=== PATIENT | female | born 1980 | race American Indian/Alaskan Native ===

== ENCOUNTER 2017-10-28 11:43 | Emergency (ER) | payer OTHER ==
[2017-10-28 12:19] VITALS: BP 130/76
[2017-10-28 13:10] LABS: Bacteria,Urine 1+ /HPF (Negative); Bilirubin,Urine NEG (Negative); Blood,Urine NEG (Negative); Color,Urine Yellow (Yellow); Mucus,Urine FEW /HPF; Protein,Urine <15 mg/dL mg/dL (Negative); Urobilinogen,Urine < 2.0 mg/dL (<2.0)
[2017-10-28 14:32] LABS: HCG Qualitative,Urine Negative (Negative)
[2017-10-28] MEDS ORDERED: NACL 0.9% 1000 ML 1,000 ML IV ONE (14:45)
[2017-10-28] MEDS ORDERED: LIDOCAINE VISCOUS 2% PO ONE (14:45)
[2017-10-28] MEDS ORDERED: ZOFRAN IV ONE (14:45)
[2017-10-28] MEDS ORDERED: PEPCID IV ONE (14:45)
[2017-10-28] MEDS ORDERED: ALUM-MAG HYDROX-SIMETH 200-200-20MG/5ML PO ONE (14:45)
--- NOTE | 2017-10-28 14:49 | Emergency Department Report ---
Blank Doc - Documentation Documentation: 37-year-old female with no past medical history and surgical history significant for delivery 4% the hospital complaints of abdominal pain , nausea, and abdominal distention for the past 5 days. Patient has upper abdominal pain, and pressure radiating across the entire upper abdomen. One episode of vomiting 4 days ago but continued nausea. Patient has a history of chronic loose stools with last bowel movement this p.m. Denies fever, melena, hematochezia, hematemesis, or dysuria. UA and urine review (neg upt) Patient does appear to have upper abdominal distention with tenderness at the right upper quadrant, epigastric area, and left upper quadrant No rebound or guarding noted CBC, CMP, lipase ordered. IV, normal saline, Zofran, Pepcid, viscous lidocaine and Maalox CT and her pelvis IV contrast mid evel to follow
[2017-10-28 15:26] LABS: Basophils # (Auto) 0.1 K/mm3 (0.0-0.1); Basophils % (Auto) 0.8 % (0.0-1.8); Eosinophils # (Auto) 0.2 K/mm3 (0.0-0.4); Eosinophils % (Auto) 2.1 % (0.0-4.3); Hematocrit 24.1 % (30.3-42.9); Hemoglobin 7.7 gm/dl (10.1-14.3); Lymphocytes # (Auto) 1.3 K/mm3 (1.2-5.4); Lymphocytes % (Auto) 14.5 % (13.4-35.0); Mean Corpuscular HGB Conc 32 % (30-34); Monocytes # (Auto) 0.5 K/mm3 (0.0-0.8); Monocytes % (Auto) 5.9 % (0.0-7.3); Platelet Count 358 K/mm3 (140-440); Red Blood Count 4.08 M/mm3 (3.65-5.03)
[2017-10-28 15:28] LABS: Mean Corpuscular Hemoglobin 19 pg (28-32); Mean Corpuscular Volume 59 fl (79-97)
[2017-10-28 15:29] LABS: Red Cell Distribution Width 20.5 % (13.2-15.2)
[2017-10-28 15:35] LABS: Alanine Aminotransferase 10 units/L (7-56); Albumin 3.9 g/dL (3.9-5); BUN/Creatinine Ratio 20; Blood Urea Nitrogen 12 mg/dL (7-17); Calcium 8.6 mg/dL (8.4-10.2); Hemolysis Index 29; Lipase 24 units/L (13-60)
--- NOTE | 2017-10-28 17:51 | Cat Scan Report ---
FINAL REPORT EXAM: CT ABDOMEN PELVIS W CON HISTORY: epigastric, upper abd pain, bloated n,v TECHNIQUE: CT of the abdomen and pelvis was performed after the administration of intravenous contrast. Subsequently, CT of the abdomen and pelvis was performed in the delayed phase. Reconstructions were included in the coronal and sagittal planes. PRIORS: None. FINDINGS: Lower thorax: There is a 4 millimeter right middle lobe pulmonary nodule on series 2, image 22. A small triangular opacity is seen adjacent to the left major fissure likely representing an intrapulmonary lymph node. A 2 millimeter left lower lobe pulmonary nodule seen on series 2, image 6. the visualized portions of the heart are normal. Liver: The liver is normal in attenuation. No intrahepatic biliary duct dilation. Tiny low-attenuation lesion is seen near the hepatic dome which is too small to characterize but likely represents a simple cyst. Gallbladder/ biliary system: The gallbladder is collapsed and not well evaluated. The common bile duct appears nondilated. Spleen: No splenic lesions are seen. Pancreas: No pancreatic lesions are seen. No pancreatic duct dilation. Kidneys: There are numerous simple left renal cysts. Some of the cysts demonstrate fill-in of contrast on the delayed phase. There is a single simple right renal cyst. One of the lesions in the inferior pole of the left kidney is higher in attenuation than a simple cyst. This lesion is seen on series 2, image 99 measuring 1.9 x 1.2 centimeters. There is a 1.3 centimeter nonspecific low-attenuation lesion in the interpolar region of the right kidney. No hydronephrosis is seen on either side. Adrenal glands: No adrenal masses. Vasculature: The abdominal and pelvic vasculature is patent without variant anatomy. Lymph nodes: No enlarged lymph nodes are seen in the abdomen or pelvis. Bowel, mesentery, peritoneum: No bowel obstruction. There is a trace amount of perihepatic ascites. The appendix is normal. No colonic diverticulosis. No bowel wall thickening. No free air. Urinary bladder: No filling defects are seen. Pelvis: Probable degenerating corpus luteal cyst is seen in the right ovary. The uterus and left ovary appear unremarkable. There is a small volume of free fluid in the pelvis. Abdominal wall: There is a small fat containing umbilical hernia. Bones: There is sclerosis surrounding the right greater than left sacroiliac joints. The sacroiliac joints remain patent. IMPRESSION: 1. Bilateral nonspecific low-attenuation renal lesions which are higher in attenuation than simple cysts. Recommend further evaluation with dedicated renal CT or MRI. 2. Several additional simple bilateral renal cysts. 3. Several left renal caliceal diverticula. 4. Small amount of free fluid in the abdomen and pelvis. 5. Probable small simple hepatic cyst near the hepatic dome. 6. Bilateral lower lobe pulmonary nodules. Recommend further evaluation with chest CT to exclude other pulmonary nodules. 7. Bilateral sacroiliitis.
--- NOTE | 2017-10-28 18:07 | Emergency Department Report ---
Vomiting/Diarrhea - HPI Chief Complaint: Abdominal Pain Stated Complaint: ABD PAIN Time Seen by Provider: 10/28/17 14:23 Duration: 5 Days Severity: moderate Nausea/Vomiting Severity: Moderate Diarrhea Severity: Mild Pain Location: Epigastric Pain Severity: Moderate Symptoms: Yes Watery Diarrhea, Yes Able to Tolerate Fluids, No Bloody diarrhea, No Fever, No Recent Unusual Foods, No Recent Untreated Water, No Recent use of Antibiotics, No Family w/ Similar Symptoms, No Contacts w/ Similar Symptoms, No Rash, No Hematuria, No Recent URI Symptoms Other History: This is a 37-year-old female who presents with abdominal pain with nausea and vomiting for 5 days. Patient states symptoms started with nausea and vomiting and lightheadedness 1 on Tuesday. Patient states she started taking Pepto-Bismol and Tylenol with some improvement of symptoms. Patient states today abdominal pain increased to sharp pains 8 out of 10 on pain scale and radiating across her entire upper abdomen. Patient also states her stomach appears to be larger than normal presentation today. Patient has a history of chronic loose stools with last bowel movement this p.m. Denies fever , chest pain, melena, hematochezia, hematemesis, dysuria, frequency, and or urgency. ED Review of Systems ROS: Stated complaint: ABD PAIN Other details as noted in HPI Constitutional: denies: chills, fever Respiratory: denies: cough, shortness of breath, wheezing Cardiovascular: denies: chest pain, palpitations Gastrointestinal: abdominal pain, nausea, vomiting, diarrhea. denies: constipation, hematemesis, melena, hematochezia Genitourinary: denies: urgency, dysuria, frequency, hematuria, discharge Neurological: denies: headache, weakness, paresthesias Psychiatric: denies: anxiety, depression ED Past Medical Hx - Past Medical History Previous Medical History?: No - Surgical History Past Surgical History?: Yes Additional Surgical History: c section - Social History Smoking Status: Never Smoker Substance Use Type: None - Medications Home Medications: Home Medications Medication Instructions Recorded Confirmed Last Taken Type Iron/Folat1/C/B12/Biot/Docusat 1 each PO DAILY #14 capsule 10/28/17 Unknown Rx [Feriva FA Capsule] Vomiting Diarrhea Exam - Exam General: Vital signs noted. No distress. Alert and acting appropriately. HEENT: Yes Moist Mucous Membranes, No Pharyngeal Erythema, No Pharyngeal Exudates, No Rhinorrhea, No Conjuctival Injection, No Frontal Tenderness, No Maxillary Tenderness Neck: No Adenopathy, No Rigidity Lungs: Yes Clear Lung Sounds, Yes Good Air Exchange, No Wheezes, No Stridor, No Cough, No Nasal Flaring, No Retractions, No Use of Accessory Muscles Heart exam: Regular: Yes, Murmur: No, Tachycardia: No Abdomen: Tenderness: Yes (RUQ & LUQ), Peritoneal Signs: No, Distention: Yes, Hyperactive Bowel sounds: No Skin exam: Rash: No, Edema: No, Normal turgor: Yes Neurologic: Alert and oriented, no deficits. Musculoskeletal: Unremarkable. ED Course Vital Signs 10/28/17 12:15 Temperature 98.5 F Pulse Rate 82 Respiratory 16 Rate Blood Pressure 130/76 O2 Sat by Pulse 96 Oximetry ED Medical Decision Making - Lab Data Result diagrams: 10/28/17 15:01 10/28/17 15:01 - Radiology Data Radiology results: report reviewed, image reviewed EXAM: CT ABDOMEN PELVIS W CON HISTORY: epigastric, upper abd pain, bloated n,v TECHNIQUE: CT of the abdomen and pelvis was performed after the administration of intravenous contrast. Subsequently, CT of the abdomen and pelvis was performed in the delayed phase. Reconstructions were included in the coronal and sagittal planes. PRIORS: None. FINDINGS: Lower thorax: There is a 4 millimeter right middle lobe pulmonary nodule on series 2, image 22. A small triangular opacity is seen adjacent to the left major fissure likely representing an intrapulmonary lymph node. A 2 millimeter left lower lobe pulmonary nodule seen on series 2, image 6. the visualized portions of the heart are normal. Liver: The liver is normal in attenuation. No intrahepatic biliary duct dilation. Tiny low-attenuation lesion is seen near the hepatic dome which is too small to characterize but likely represents a simple cyst. Gallbladder/ biliary system: The gallbladder is collapsed and not well evaluated. The common bile duct appears nondilated. Spleen: No splenic lesions are seen. Pancreas: No pancreatic lesions are seen. No pancreatic duct dilation. Kidneys: There are numerous simple left renal cysts. Some of the cysts demonstrate fill-in of contrast on the delayed phase. There is a single simple right renal cyst. One of the lesions in the inferior pole of the left kidney is higher in attenuation than a simple cyst. This lesion is seen on series 2, image 99 measuring 1.9 x 1.2 centimeters. There is a 1.3 centimeter nonspecific low-attenuation lesion in the interpolar region of the right kidney. No hydronephrosis is seen on either side. Adrenal glands: No adrenal masses. Vasculature: The abdominal and pelvic vasculature is patent without variant anatomy. Lymph nodes: No enlarged lymph nodes are seen in the abdomen or pelvis. Bowel, mesentery, peritoneum: No bowel obstruction. There is a trace amount of perihepatic ascites. The appendix is normal. No colonic diverticulosis. No bowel wall thickening. No free air. Urinary bladder: No filling defects are seen. Pelvis: Probable degenerating corpus luteal cyst is seen in the right ovary. The uterus and left ovary appear unremarkable. There is a small volume of free fluid in the pelvis. Abdominal wall: There is a small fat containing umbilical hernia. Bones: There is sclerosis surrounding the right greater than left sacroiliac joints. The sacroiliac joints remain patent. IMPRESSION: 1. Bilateral nonspecific low-attenuation renal lesions which are higher in attenuation than simple cysts. Recommend further evaluation with dedicated renal CT or MRI. 2. Several additional simple bilateral renal cysts. 3. Several left renal caliceal diverticula. 4. Small amount of free fluid in the abdomen and pelvis. 5. Probable small simple hepatic cyst near the hepatic dome. 6. Bilateral lower lobe pulmonary nodules. Recommend further evaluation with chest CT to exclude other pulmonary nodules. 7. Bilateral sacroiliitis. - Medical Decision Making This is a 37 y.o. female that presents with nausea vomiting and epigastric abdominal pain for 5 days. Patient is stable and was examined by ca and Dr. Yanes. Vitals are normal. Obtained labs. Patient has anemia, all of the labs are unremarkable. CT of abdomen and pelvis obtained and dictated by radiologist. 1. Bilateral nonspecific low-attenuation renal lesions which are higher in attenuation than simple cysts. Recommend further evaluation with dedicated renal CT or MRI. 2. Several additional simple bilateral renal cysts. 3. Several left renal caliceal diverticula. 4. Small amount of free fluid in the abdomen and pelvis. 5. Probable small simple hepatic cyst near the hepatic dome. 6. Bilateral lower lobe pulmonary nodules. Recommend further evaluation with chest CT to exclude other pulmonary nodules. 7. Bilateral sacroiliitis. Discussed CT results with patient, patient is aware of lesions insisting currently follow with urology. Discussed plan with patient to start iron supplements but will need to follow up with primary care provider for refills. Patient will be referred to pulmonology for further evaluation of pulmonary nodules. No further questions noted by the patient. Discharged home in stable condition. Follow up with PCP in 2-3 days. Critical care attestation.: If time is entered above; I have spent that time in minutes in the direct care of this critically ill patient, excluding procedure time. ED Disposition Clinical Impression: Renal lesion, Bilateral renal cysts, Pulmonary nodules, Nausea and vomiting in adult Anemia Qualifiers: Anemia type: unspecified type Qualified Code(s): D64.9 - Anemia, unspecified Disposition: TO HOME OR SELFCARE Is pt being admited?: No Does the pt Need Aspirin: No Condition: Stable Instructions: Abdominal Pain (ED), Acute Nausea and Vomiting (ED) Additional Instructions: Wash hands frequently. Increase fluid intake. Drinks high in sugars such as carbonated soft drinks, fruit juice, and highly sugared liquids should be avoided. Follow-up with urology for further workup and management of renal lesions cyst. Follow-up with pulmonology for further evaluation of pulmonary nodules. Take iron for anemia daily with stool softeners to avoid constipation. Prescriptions: Iron/Folat1/C/B12/Biot/Docusat [Feriva FA Capsule] 1 each PO DAILY #14 capsule Referrals: [facility] SHELTON [Provider Group] - 3-5 Days WILY NGUYEN MD [Staff Physician] - 3-5 Days JOSUE FORRESTER MD [Staff Physician] - 3-5 Days Forms: Work/School Release Form(ED) Time of Disposition: 18:28 Print Language: BULGARIAN
== END 2017-10-28 18:46 | disposition home or self-care (01) ==
LOC: ED 11:43
DX: N28.1 Cyst of kidney, acquired (principal); N28.9 Disorder of kidney and ureter, unspecified; R91.1 Solitary pulmonary nodule; D64.9 Anemia, unspecified
CPT/HCPCS: 36415; 74177; 80053; 81001; 81025; 82271; 83690; 85025; 96361; 96374; 96375; 99284; J2405; J7030; Q9967

== ENCOUNTER 2019-02-14 05:35 | Observation (INO) | payer OTHER ==
[2019-02-14] MEDS ORDERED: ACETAMINOPHEN 500 MG TAB ONE (05:58)
[2019-02-14] MEDS ORDERED: ACETAMINOPHEN 500 MG TAB PO ONE (06:06)
--- NOTE | 2019-02-14 06:10 | XRay Report ---
CHEST 1 VIEW, 02/14/2019 5:49 AM CLINICAL INFORMATION/INDICATION: Chest pain COMPARISON: None FINDINGS: SUPPORT DEVICES: None. HEART: The cardiac silhouette is normal in size. LUNGS/PLEURA: The lungs are clear of focal airspace disease or significant pleural effusion. ADDITIONAL FINDINGS: No additional acute findings. IMPRESSION: 1. No evidence of acute cardiopulmonary process. Signer Name: Macy Nugent MD Signed: 02/14/2019 6:06 AM Workstation Name: [id number]
[2019-02-14 06:25] LABS: Hematocrit 24.3 % (30.3-42.9); Hemoglobin 7.2 gm/dl (10.1-14.3); Mean Corpuscular HGB Conc 30 % (30-34); Platelet Count 314 K/mm3 (140-440); Red Blood Count 4.13 M/mm3 (3.65-5.03)
[2019-02-14 06:35] LABS: Mean Corpuscular Volume 59 fl (79-97); Red Cell Distribution Width 20.8 % (13.2-15.2)
[2019-02-14] MEDS ORDERED: KETOROLAC 30 MG/1 ML INJ IV ONE (06:40)
[2019-02-14] MEDS ORDERED: SODIUM CHLORIDE 0.9% 1000 ML 1,000 ML IV ONE ×2 (06:40→06:41)
[2019-02-14 06:45] LABS: BUN/Creatinine Ratio 16; Blood Urea Nitrogen 11 mg/dL (7-17); Calcium 8.4 mg/dL (8.4-10.2); Hemolysis Index 0
[2019-02-14 07:03] LABS: Bilirubin,Urine NEG (Negative); Blood,Urine NEG (Negative); Color,Urine Straw (Yellow); Protein,Urine <15 mg/dL mg/dL (Negative); Urobilinogen,Urine < 2.0 mg/dL (<2.0)
[2019-02-14 07:05] LABS: HCG Qualitative,Urine Negative (Negative)
[2019-02-14 07:13] LABS: Anisocytosis 1+; Band Neutrophils # (Manual) 0.2 K/mm3; Basophils % (Manual) 0 % (0.0-1.8); Eosinophils % (Manual) 0 % (0.0-4.3); Hypochromasia 3+; Monocytes % (Manual) 0 % (0.0-7.3); Total Cells Counted 100
[2019-02-14 07:14] LABS: Schistocytes 1+
[2019-02-14 07:15] LABS: Ovalocytes 1+; Stomatocytes Few; Target Cells 1+
[2019-02-14 07:16] LABS: Platelet Estimate Consistent w Auto
[2019-02-14 07:21] LABS: INR 1.05 (0.87-1.13)
[2019-02-14 07:22] LABS: Partial Thromboplastin Time 32.6 Sec. (24.2-36.6)
[2019-02-14 07:27] LABS: Alanine Aminotransferase 18 units/L (7-56); Albumin 3.4 g/dL (3.9-5)
[2019-02-14 07:28] LABS: Bilirubin,Direct < 0.2 mg/dL (0-0.2)
--- NOTE | 2019-02-14 07:56 | Emergency Department Report ---
ED General Adult HPI - General Chief complaint: Chest Pain Stated complaint: CP Time Seen by Provider: 02/14/19 06:09 Source: patient Mode of arrival: Stretcher Limitations: No Limitations - History of Present Illness Initial comments: This is a 39-year-old female who does not take any chronic medications. Initially she states that she doesn't have any medical history. However on further questioning she has a history of a renal abscess and transfusion requirement after . She states that she has not received any other transfusion. She states that her periods have been on time and 5 days of duration and not chronically heavy. She came to the emergency room today as she woke up in the middle of night with chest pain that radiated to her mid thoracic area. She did have some mild shortness of breath which is not ongoing. The pain has resolved. It was not associated with cough. Patient stated that she went to the bathroom and vomited once and had a bowel movement which was apparently normal. She does not report any difficulty in urinating. She was not aware of fever and did not experience chills. -: Sudden (awoken last night) Location: chest Radiation: back Severity scale (0 -10): 8 Quality: aching Consistency: now resolved Improves with: none Worsens with: none Associated Symptoms: denies other symptoms (see HPI above) Treatments Prior to Arrival: none - Related Data Previous Rx's Medication Instructions Recorded Last Taken Type Iron/Folat1/C/B12/Biot/Docusat 1 each PO DAILY #14 capsule 10/28/17 Unknown Rx [Feriva FA Capsule] Allergies Allergy/AdvReac Type Severity Reaction Status Date / Time No Known Allergies Allergy Verified 02/14/19 05:45 ED Review of Systems ROS: Stated complaint: CP Other details as noted in HPI Constitutional: denies: chills, fever Eyes: denies: eye pain, eye discharge, vision change ENT: denies: ear pain, throat pain Respiratory: denies: cough, shortness of breath, wheezing Cardiovascular: chest pain. denies: palpitations Endocrine: no symptoms reported Gastrointestinal: nausea, vomiting. denies: abdominal pain, diarrhea Genitourinary: denies: urgency, dysuria, discharge Musculoskeletal: back pain. denies: joint swelling, arthralgia Skin: denies: rash, lesions Neurological: denies: headache, weakness, paresthesias Psychiatric: denies: anxiety, depression Hematological/Lymphatic: denies: easy bleeding, easy bruising ED Past Medical Hx - Past Medical History Previous Medical History?: No - Surgical History Past Surgical History?: Yes Additional Surgical History: c section - Social History Smoking Status: Never Smoker Substance Use Type: None - Medications Home Medications: Home Medications Medication Instructions Recorded Confirmed Last Taken Type Iron/Folat1/C/B12/Biot/Docusat 1 each PO DAILY #14 capsule 10/28/17 Unknown Rx [Feriva FA Capsule] ED Physical Exam - General Limitations: No Limitations General appearance: alert, in no apparent distress - Head Head exam: Present: atraumatic, normocephalic - Eye Eye exam: Present: normal appearance, conjunctival injection (and conjunctival pallor) - ENT ENT exam: Present: mucous membranes moist - Neck Neck exam: Present: normal inspection. Absent: tenderness, meningismus - Respiratory Respiratory exam: Present: normal lung sounds bilaterally. Absent: respiratory distress - Cardiovascular Cardiovascular Exam: Present: regular rate, normal rhythm. Absent: systolic murmur, diastolic murmur, rubs, gallop - GI/Abdominal GI/Abdominal exam: Present: soft, normal bowel sounds. Absent: distended, tenderness, guarding, rebound, rigid - Extremities Exam Extremities exam: Present: normal inspection, normal capillary refill. Absent: pedal edema, joint swelling, calf tenderness - Back Exam Back exam: Present: normal inspection. Absent: CVA tenderness (R), CVA tenderness (L), muscle spasm, paraspinal tenderness, vertebral tenderness - Neurological Exam Neurological exam: Present: alert, oriented X3, CN II-XII intact - Psychiatric Psychiatric exam: Present: normal affect, normal mood - Skin Skin exam: Present: warm, dry, intact, normal color. Absent: rash ED Course Vital Signs 02/14/19 02/14/19 02/14/19 05:40 05:42 05:45 Temperature 101.4 F H Pulse Rate 97 H Respiratory 18 Rate Blood Pressure 133/66 124/60 O2 Sat by Pulse 100 100 97 Oximetry 02/14/19 02/14/19 02/14/19 06:00 06:17 06:30 Temperature Pulse Rate 97 H 91 H 95 H Respiratory 22 14 19 Rate Blood Pressure 125/55 115/47 121/49 O2 Sat by Pulse 96 99 98 Oximetry 1102/14/19 02/14/19 06:45 07:00 07:15 Temperature 99.3 F Pulse Rate 96 H 93 H Respiratory 26 H 16 Rate Blood Pressure 121/63 118/59 O2 Sat by Pulse 96 97 Oximetry - Reevaluation(s) Reevaluation #1: The patient was given IV fluid and Tylenol. 1 g of ceftriaxone empirically. Lactic acid level was normal. So far no obvious source of infection. CT examinations are pending. One unit of blood ordered. Discussed with hospitalist. Patient is pending admission by Dr. Kruger. I will check CT results. 02/14/19 08:28 Reevaluation #2: CT studies are basically normal. 02/14/19 09:59 Reevaluation #3: There was a very late disclosure and/or discovery of the patient's [employer] insurance status. She is referred and seen and admitted to observation by the hospitalist. I spoke to Dr. Betts at [employer]. She authorized us to keep the patient here to complete her observation screening overnight. 02/14/19 11:40 ED Medical Decision Making - Lab Data Result diagrams: 02/14/19 05:48 02/14/19 05:48 Laboratory Results - last 24 hr 02/14/19 02/14/19 02/14/19 05:48 05:48 05:53 WBC 9.0 RBC 4.13 Hgb 7.2 L Hct 24.3 L MCV 59 L MCH 17 L MCHC 30 RDW 20.8 H Plt Count 314 Add Manual Diff Complete Total Counted 100 Seg Neutrophils % Fire Alarm Operator Seg Neuts % (Manual) 96.0 H Band Neutrophils % 2.0 Lymphocytes % (Manual) 2.0 L Reactive Lymphs % (Man) 0 Monocytes % (Manual) 0 Eosinophils % (Manual) 0 Basophils % (Manual) 0 Metamyelocytes % 0 Myelocytes % 0 Promyelocytes % 0 Blast Cells % 0 Nucleated RBC % Not Reportable Seg Neutrophils # Man 8.6 H Band Neutrophils # 0.2 Lymphocytes # (Manual) 0.2 L Abs React Lymphs (Man) 0.0 Monocytes # (Manual) 0.0 Eosinophils # (Manual) 0.0 Basophils # (Manual) 0.0 Metamyelocytes # 0.0 Myelocytes # 0.0 Promyelocytes # 0.0 Blast Cells # 0.0 WBC Morphology Not Reportable Hypersegmented Neuts Not Reportable Hyposegmented Neuts Not Reportable Hypogranular Neuts Not Reportable Smudge Cells Not Reportable Toxic Granulation Not Reportable Toxic Vacuolation Not Reportable Dohle Bodies Not Reportable Pelger-Huet Anomaly Not Reportable Kike Rods Not Reportable Platelet Estimate Consistent w auto Clumped Platelets Not Reportable Plt Clumps, EDTA Not Reportable Large Platelets Not Reportable Giant Platelets Not Reportable Platelet Satelliting Not Reportable Plt Morphology Comment Not Reportable RBC Morphology Not Reportable Dimorphic RBCs Not Reportable Polychromasia Not Reportable Hypochromasia 3+ Poikilocytosis Not Reportable Anisocytosis 1+ Microcytosis 2+ Macrocytosis Not Reportable Spherocytes Not Reportable Pappenheimer Bodies Not Reportable Sickle Cells Not Reportable Target Cells 1+ Tear Drop Cells Not Reportable Ovalocytes 1+ Stomatocytes Few Helmet Cells Not Reportable Russell-[place] Bodies Not Reportable [place] Rings Not Reportable Rhina Cells Not Reportable Bite Cells Not Reportable Crenated Cell Not Reportable Elliptocytes Not Reportable Acanthocytes (Spur) Not Reportable Rouleaux Not Reportable Hemoglobin C Crystals Not Reportable Schistocytes 1+ Malaria parasites Not Reportable Cornelio Bodies Not Reportable Hem Pathologist Commnt No PT INR APTT D-Dimer Sodium 139 Potassium 3.2 L Chloride 104.4 Carbon Dioxide 18 L Anion Gap 20 BUN 11 Creatinine 0.7 Estimated GFR > 60 BUN/Creatinine Ratio 16 Glucose 94 Lactic Acid 1.90 Calcium 8.4 Total Bilirubin Direct Bilirubin Indirect Bilirubin AST ALT Alkaline Phosphatase Troponin T < 0.010 Total Protein Albumin Albumin/Globulin Ratio Urine Color Urine Turbidity Urine pH Ur Specific [place] Urine Protein Urine Glucose (UA) Urine Ketones Urine Blood Urine Nitrite Urine Bilirubin Urine Urobilinogen Ur Leukocyte Esterase Urine WBC (Auto) Urine RBC (Auto) U Epithel Cells (Auto) Urine HCG, Qual 02/14/19 02/14/19 02/14/19 06:14 06:56 06:56 WBC RBC Hgb Hct MCV MCH MCHC RDW Plt Count Add Manual Diff Total Counted Seg Neutrophils % Seg Neuts % (Manual) Band Neutrophils % Lymphocytes % (Manual) Reactive Lymphs % (Man) Monocytes % (Manual) Eosinophils % (Manual) Basophils % (Manual) Metamyelocytes % Myelocytes % Promyelocytes % Blast Cells % Nucleated RBC % Seg Neutrophils # Man Band Neutrophils # Lymphocytes # (Manual) Abs React Lymphs (Man) Monocytes # (Manual) Eosinophils # (Manual) Basophils # (Manual) Metamyelocytes # Myelocytes # Promyelocytes # Blast Cells # WBC Morphology Hypersegmented Neuts Hyposegmented Neuts Hypogranular Neuts Smudge Cells Toxic Granulation Toxic Vacuolation Dohle Bodies Pelger-Huet Anomaly Kike Rods Platelet Estimate Clumped Platelets Plt Clumps, EDTA Large Platelets Giant Platelets Platelet Satelliting Plt Morphology Comment RBC Morphology Dimorphic RBCs Polychromasia Hypochromasia Poikilocytosis Anisocytosis Microcytosis Macrocytosis Spherocytes Pappenheimer Bodies Sickle Cells Target Cells Tear Drop Cells Ovalocytes Stomatocytes Helmet Cells Russell-[place] Bodies [place] Rings Rhina Cells Bite Cells Crenated Cell Elliptocytes Acanthocytes (Spur) Rouleaux Hemoglobin C Crystals Schistocytes Malaria parasites Cornelio Bodies Hem Pathologist Commnt PT 13.6 INR 1.05 APTT 32.6 D-Dimer 510.30 H Sodium Potassium Chloride Carbon Dioxide Anion Gap BUN Creatinine Estimated GFR BUN/Creatinine Ratio Glucose Lactic Acid Calcium Total Bilirubin Direct Bilirubin Indirect Bilirubin AST ALT Alkaline Phosphatase Troponin T < 0.010 Total Protein Albumin Albumin/Globulin Ratio Urine Color Straw Urine Turbidity Clear Urine pH 7.0 Ur Specific [place] 1.004 Urine Protein <15 mg/dl Urine Glucose (UA) Neg Urine Ketones Neg Urine Blood Neg Urine Nitrite Neg Urine Bilirubin Neg Urine Urobilinogen < 2.0 Ur Leukocyte Esterase Neg Urine WBC (Auto) 1.0 Urine RBC (Auto) Not Reportable U Epithel Cells (Auto) 1.0 Urine HCG, Qual Negative 02/14/19 06:56 WBC RBC Hgb Hct MCV MCH MCHC RDW Plt Count Add Manual Diff Total Counted Seg Neutrophils % Seg Neuts % (Manual) Band Neutrophils % Lymphocytes % (Manual) Reactive Lymphs % (Man) Monocytes % (Manual) Eosinophils % (Manual) Basophils % (Manual) Metamyelocytes % Myelocytes % Promyelocytes % Blast Cells % Nucleated RBC % Seg Neutrophils # Man Band Neutrophils # Lymphocytes # (Manual) Abs React Lymphs (Man) Monocytes # (Manual) Eosinophils # (Manual) Basophils # (Manual) Metamyelocytes # Myelocytes # Promyelocytes # Blast Cells # WBC Morphology Hypersegmented Neuts Hyposegmented Neuts Hypogranular Neuts Smudge Cells Toxic Granulation Toxic Vacuolation Dohle Bodies Pelger-Huet Anomaly Kike Rods Platelet Estimate Clumped Platelets Plt Clumps, EDTA Large Platelets Giant Platelets Platelet Satelliting Plt Morphology Comment RBC Morphology Dimorphic RBCs Polychromasia Hypochromasia Poikilocytosis Anisocytosis Microcytosis Macrocytosis Spherocytes Pappenheimer Bodies Sickle Cells Target Cells Tear Drop Cells Ovalocytes Stomatocytes Helmet Cells Russell-[place] Bodies [place] Rings [place] Cells Bite Cells Crenated Cell Elliptocytes Acanthocytes (Spur) Rouleaux Hemoglobin C Crystals Schistocytes Malaria parasites Cornelio Bodies Hem Pathologist Commnt PT INR APTT D-Dimer Sodium Potassium Chloride Carbon Dioxide Anion Gap BUN Creatinine Estimated GFR BUN/Creatinine Ratio Glucose Lactic Acid Calcium Total Bilirubin 0.40 Direct Bilirubin < 0.2 Indirect Bilirubin 0.2 AST 32 ALT 18 Alkaline Phosphatase 55 Troponin T Total Protein 6.8 Albumin 3.4 L Albumin/Globulin Ratio 1.0 Urine Color Urine Turbidity Urine pH Ur Specific [place] Urine Protein Urine Glucose (UA) Urine Ketones Urine Blood Urine Nitrite Urine Bilirubin Urine Urobilinogen Ur Leukocyte Esterase Urine WBC (Auto) Urine RBC (Auto) U Epithel Cells (Auto) Urine HCG, Qual - EKG Data -: EKG Interpreted by Ok EKG shows normal: sinus rhythm, axis, intervals, QRS complexes, ST-T waves Rate: normal - EKG Data Interpretation: normal EKG - Radiology Data Radiology results: report reviewed Critical care attestation.: If time is entered above; I have spent that time in minutes in the direct care of this critically ill patient, excluding procedure time. ED Disposition Clinical Impression: Febrile illness, acute Anemia Qualifiers: Anemia type: iron deficiency Iron deficiency anemia type: chronic blood loss Qualified Code(s): D50.0 - Iron deficiency anemia secondary to blood loss (chronic) Chest pain Qualifiers: Chest pain type: unspecified Qualified Code(s): R07.9 - Chest pain, unspecified Disposition: OP ADMIT IP TO THIS HOSP Is pt being admited?: Yes Does the pt Need Aspirin: Yes Condition: Stable Time of Disposition: 11:41
[2019-02-14] MEDS ORDERED: POTASSIUM CHLORIDE ER 20 MEQ TAB PO ONE (07:58)
[2019-02-14] MEDS ORDERED: SODIUM CHLORIDE 0.9% 500 ML 500 ML IV ONE (07:59)
[2019-02-14] MEDS ORDERED: cefTRIAXone/NS 1 GM/50 ML 1 GM/50 ML BAG IV ONE (08:18)
--- NOTE | 2019-02-14 09:16 | Cat Scan Report ---
CTA CHEST WITH CONTRAST INDICATION : Chest pain, elevated d-dimer. TECHNIQUE: Axial imaging performed through the chest, with contrast bolus timing set to maximize opa cification of the pulmonary arteries. Sagittal and coronal reformatted images. 3-plane MIP reformatte d images were obtained. All CT scans at this location are performed using CT dose reduction for ALAR A by means of automated exposure control. 100 mL of intravenous contrast administered. COMPARISON: None FINDINGS: Bolus: Contrast bolus timing is slightly limited. There is poor opacification of the distal small pu lmonary arteries. PTE: No large central pulmonary embolus is detected. No obvious distal embolus. Mediastinum: Heart and great vessels appear normal. No pathologic mediastinal adenopathy. Lungs: Lungs are clear. Bones: Mild degenerative changes in the spine with nothing acute. Upper abdomen: Limited imaging of the upper abdomen shows nothing acute. IMPRESSION: Slightly limited contrast bolus. No pulmonary embolus is detected. Unremarkable CTA chest. Signer Name: Celio Treviño Jr, MD Signed: 02/14/2019 9:12 AM Workstation Name: [id number]
--- NOTE | 2019-02-14 09:29 | History and Physical Report ---
History of Present Illness Date of examination: 02/14/19 Date of admission: 02/14/19 Chief complaint: Chest pain shortness of breath/fever History of present illness: 39-year-old female patient with no significant past medical history presented to the emergency room with chest pain retrosternal and mild shortness of breath Patient relates her chest pain between 5-6/10 at its peak, denies nausea vomiting or abdominal pain Patient also complains of generalized weakness. Patient denies any fever, headache dizziness. Patient's had a temperature of 101.4F early this morning in the ER. No Cough or urinary symptoms Initial workup for sit of cardiac enzymes negative, chest x-ray within normal limits, hemoglobin 7.2 Past History Past Medical History: No medical history Past Surgical History: Social history: denies: smoking, alcohol abuse, prescription drug abuse Family history: hypertension Medications and Allergies Allergies Allergy/AdvReac Type Severity Reaction Status Date / Time No Known Allergies Allergy Verified 02/14/19 05:45 Home Medications Medication Instructions Recorded Confirmed Last Taken Type Iron/Folat1/C/B12/Biot/Docusat 1 each PO DAILY #14 capsule 10/28/17 Unknown Rx [Feriva FA Capsule] Review of Systems Constitutional: fever, weakness, no weight loss, no weight gain Ears, nose, mouth and throat: no nasal congestion, no nasal discharge Cardiovascular: chest pain, no orthopnea, no palpitations, no shortness of breath Gastrointestinal: no abdominal pain, no nausea, no vomiting Genitourinary Female: no pelvic pain, no flank pain Musculoskeletal: no myalgias, no arthritis Integumentary: no rash, no lesions Neurological: weakness Psychiatric: no anxiety, no depression Endocrine: no cold intolerance, no heat intolerance Hematologic/Lymphatic: no easy bruising, no easy bleeding Allergic/Immunologic: no urticaria, no allergic rhinitis Exam - Constitutional Vitals: Temp Pulse Resp BP Pulse Ox 99.3 F 93 H 16 118/59 97 02/14/19 07:15 02/14/19 07:00 02/14/19 07:00 02/14/19 07:00 02/14/19 07:00 General appearance: Present: no acute distress, well-nourished - EENT Eyes: Present: PERRL, EOM intact - Neck Neck: Present: supple, normal ROM - Respiratory Respiratory effort: normal Respiratory: bilateral: diminished, negative: rales, rhonchi, wheezing - Cardiovascular Rhythm: regular Heart Sounds: Present: S1 & S2 - Extremities Extremities: no ischemia, No edema - Abdominal General gastrointestinal: Present: soft, non-tender, non-distended, normal bowel sounds - Integumentary Integumentary: Present: clear, warm - Musculoskeletal Musculoskeletal: strength equal bilaterally - Psychiatric Psychiatric: appropriate mood/affect, cooperative - Neurologic Neurologic: CNII-XII intact, moves all extremities Results - Labs CBC & Chem 7: 02/14/19 16:35 02/14/19 12:31 Labs: Abnormal lab results 02/14/19 02/14/19 02/14/19 Range/Units 05:48 05:48 06:56 Hgb 7.2 L (10.1-14.3) gm/dl Hct 24.3 L (30.3-42.9) % MCV 59 L (79-97) fl MCH 17 L (28-32) pg RDW 20.8 H (13.2-15.2) % Seg Neuts % (Manual) 96.0 H (40.0-70.0) % Lymphocytes % (Manual) 2.0 L (13.4-35.0) % Seg Neutrophils # Man 8.6 H (1.8-7.7) K/mm3 Lymphocytes # (Manual) 0.2 L (1.2-5.4) K/mm3 D-Dimer 510.30 H (0-234) ng/mlDDU Potassium 3.2 L (3.6-5.0) mmol/L Carbon Dioxide 18 L (22-30) mmol/L Albumin (3.9-5) g/dL 02/14/19 Range/Units 06:56 Hgb (10.1-14.3) gm/dl Hct (30.3-42.9) % MCV (79-97) fl MCH (28-32) pg RDW (13.2-15.2) % Seg Neuts % (Manual) (40.0-70.0) % Lymphocytes % (Manual) (13.4-35.0) % Seg Neutrophils # Man (1.8-7.7) K/mm3 Lymphocytes # (Manual) (1.2-5.4) K/mm3 D-Dimer (0-234) ng/mlDDU Potassium (3.6-5.0) mmol/L Carbon Dioxide (22-30) mmol/L Albumin 3.4 L (3.9-5) g/dL Assessment and Plan --Febrile illness: Probably viral syndrome Antipyretics IV fluids Rule out influenza --Atypical chest pain; 2 sets of cardiac enzymes negative Probably secondary to GERD Chest pain resolved --Symptomatic anemia; Transfuse 1 unit of PRBC Closely monitor H&H and --Obesity; BMI 34.7 Weight reduction advised Monitor closely and adjust management as needed Possible discharge home tomorrow if stable,
--- NOTE | 2019-02-14 09:38 | Cat Scan Report ---
CT ABDOMEN AND PELVIS WITH CONTRAST HISTORY: Fever, pain and history of renal abscess. COMPARISON: 10/28/2017 TECHNIQUE: Routine abdominal and pelvic CT exam performed following intravenous contrast administrat ion.. 100 cc of Omnipaque 300 was injected intravenously without incident. Consent was obtained prior to the administration of the contrast. All CT scans at this location are performed using CT dose red uction for ALARA by means of automated exposure control. FINDINGS: CT ABDOMEN: Lung Bases: No significant abnormality. Liver: Large with the right lobe measuring 20.5 cm in length. No liver mass or abnormal density. Biliary: Contracted gallbladder with no stones. Normal bile ducts. Spleen: Normal. 10.2 cm in length. Pancreas: Abnormal. Adrenals: Normal. Kidneys: Bilateral renal cysts and normal nondilated renal collecting systems and ureters. The larges t cyst is in the midportion of the left kidney and measures 5.2 cm. No renal mass, calculus or absces s. Lymphatics: No lymphadenopathy. Vasculature: No significant abnormality. Bowel/Peritoneum: No significant abnormality. No free air. No free fluid. Normal appendix. CT PELVIC: : Normal urinary bladder, rectum and sigmoid colon. Normal uterus and ovaries. Lymphatics: No lymphadenopathy. Osseous Structures: No aggressive appearing osseous lesions. Additional Findings: No adnexal mass or free fluid. IMPRESSION: 1. Hepatomegaly of uncertain etiology unchanged since the last exam. 2. No abscess. 3. No cholelithiasis or signs of acute cholecystitis. 4. No evidence of pancreatitis. 5. Bilateral benign renal cysts. 6. No urinary calculus. Signer Name: Walker Dupree MD Signed: 02/14/2019 9:33 AM Workstation Name: [id number]
[2019-02-14] MEDS ORDERED: ACETAMINOPHEN 325 MG TAB PO PRN (09:40)
[2019-02-14] MEDS ORDERED: [UNRECOGNIZED DRUG - MIXTURE] PO SCH (10:00)
--- NOTE | 2019-02-14 10:55 | Vascular Lab Report ---
DUPLEX DOPPLER LOWER EXTREMITY VEINS, BILATERAL INDICATION: elevated d dimers/evaluate for DVT. TECHNIQUE: Duplex doppler imaging was performed through the veins of both lower extremities using ve nous compression and other maneuvers. COMPARISON: No relevant prior imaging study available. FINDINGS: Right Common femoral vein: Negative. Right Superficial femoral vein: Negative. Right Popliteal vein: Negative. Right Calf veins: Negative. Left Common femoral vein: Negative. Left Superficial femoral vein: Negative. Left Popliteal vein: Negative. Left Calf veins: Negative. Additional findings: None.. IMPRESSION: No sonographic evidence for DVT in either lower extremity. Signer Name: Celio Treviño Jr, MD Signed: 02/14/2019 10:51 AM Workstation Name: [id number]
[2019-02-14] MEDS ORDERED: SODIUM CHLORIDE 0.9% 1000 ML 1,000 ML ONE (11:30)
[2019-02-14] MEDS ORDERED: PANTOPRAZOLE 40 MG INJ IV ONE (11:30)
[2019-02-14] MEDS: PANTOPRAZOLE 40 MG INJ IV SCH (11:35)
[2019-02-14] MEDS: SODIUM CHLORIDE 0.9% 1000 ML 1,000 ML IV SCH ×2 (11:35→23:46)
[2019-02-14] MEDS ORDERED: ASPIRIN 81 MG TAB CHEW ONE (14:12)
[2019-02-14] MEDS: ASPIRIN 81 MG TAB CHEW PO SCH (14:18)
[2019-02-14] MEDS ORDERED: ONDANSETRON 4 MG/2 ML INJ IV ONE (15:14)
[2019-02-14] MEDS ORDERED: ONDANSETRON 4 MG/2 ML INJ ONE (15:19)
[2019-02-14 16:50] LABS: Hematocrit 26.9 % (30.3-42.9); Hemoglobin 8.1 gm/dl (10.1-14.3)
[2019-02-14] MEDS: oxyCODONE /ACETAMINOPHEN 5-325MG TAB PO PRN (19:34)
[2019-02-15 05:44] VITALS: BP 112/50
[2019-02-15] MEDS: oxyCODONE /ACETAMINOPHEN 5-325MG TAB PO PRN (06:01)
[2019-02-15] MEDS: ASPIRIN 81 MG TAB CHEW PO SCH (10:50)
[2019-02-15] MEDS: PANTOPRAZOLE 40 MG INJ IV SCH (10:51)
--- NOTE | 2019-02-15 12:15 | Discharge Summary ---
Providers - Providers Date of Admission: 02/14/19 09:31 Date of discharge: 02/15/19 Attending physician: LEESA NIX Primary care physician: AEROSPACE ENGINEER OFFICER ARMAMENT Hospitalization Reason for admission: Atypical chest pain shortness of breath and anemia Condition: Stable Pertinent studies: CT abdomen CTA chest Lower extremity venous Doppler Chest x-ray Procedures: Blood transfusion Hospital course: 39-year-old female patient with no significant past medical history presented to the emergency room with chest pain retrosternal and mild shortness of breath Patient relates her chest pain between 5-6/10 at its peak, denies nausea vomiting or abdominal pain, Patient also complains of generalized weakness. Patient denies any fever, headache dizziness., Patient's had a temperature of 101.4F early this morning in the ER. No Cough or urinary symptoms, Initial workup first set of cardiac enzymes negative, chest x-ray within normal limits, hemoglobin 7.2, Patient received 1 unit of PRBC, antibiotics, IV fluids Symptoms significantly improved, l no new complaints Hemoglobin improved, afebrile, cleared for discharge and follow-up with PMD Patient is hemodynamically and clinically stable at discharge Discharge diagnosis: --Febrile illness: Probably viral syndrome Antipyretics IV fluids Rule out influenza --Atypical chest pain; 2 sets of cardiac enzymes negative Probably secondary to GERD Chest pain resolved --Symptomatic anemia; Transfuse 1 unit of PRBC Closely monitor H&H and --Obesity; BMI 34.7 Weight reduction advised Stable at discharge Disposition: DC-01 TO HOME OR SELFCARE Time spent for discharge: 32 min Core Measure Documentation - Palliative Care Palliative Care/ Comfort Measures: Not Applicable - Core Measures Any of the following diagnoses?: none Exam - Constitutional Vitals: Temp Pulse Resp BP Pulse Ox 99.1 F 78 14 112/50 100 02/15/19 05:43 02/15/19 05:43 02/15/19 06:01 02/15/19 05:43 02/15/19 05:43 General appearance: Present: no acute distress, well-nourished - EENT Eyes: Present: PERRL, EOM intact - Neck Neck: Present: supple, normal ROM - Respiratory Respiratory effort: normal Respiratory: bilateral: diminished, rhonchi - Cardiovascular Rhythm: regular Heart Sounds: Present: S1 & S2 - Extremities Extremities: no ischemia, No edema - Abdominal General gastrointestinal: Present: soft, non-tender, non-distended, normal bowel sounds - Integumentary Integumentary: Present: clear, warm - Musculoskeletal Musculoskeletal: strength equal bilaterally, generalized weakness - Psychiatric Psychiatric: appropriate mood/affect, cooperative - Neurologic Neurologic: CNII-XII intact, moves all extremities Plan Activity: no restrictions Diet: regular Additional Instructions: advised to see PMD in 1-2 weeks Follow up with: PRIMARY CARE,MD [Primary Care Provider] - 3-5 Days Prescriptions: Pantoprazole [Protonix TAB] 40 mg PO DAILY #10 tablet Ondansetron [Zofran Odt] 4 mg PO Q8HR PRN #15 tab.rapdis PRN Reason: Nausea
[2019-02-16] MEDS ORDERED: PANTOPRAZOLE 40 MG TAB PO SCH (10:00)
== END 2019-02-15 12:47 | disposition home or self-care (01) ==
LOC: ED 05:35 → 3A 09:31
PROVIDERS: ADMIT Internal Medicine; ATTEND Internal Medicine
DX: R07.89 Other chest pain (principal); R50.9 Fever, unspecified; E66.9 Obesity, unspecified; D50.0 Iron deficiency anemia secondary to blood loss (chronic); Z68.34 Body mass index [BMI] 34.0-34.9, adult
CPT/HCPCS: 36415; 36430; 71045; 71275; 74177; 80048; 80076; 81001; 81025; 82140; 84132; 84484; 85007; 85014; 85018; 85025; 85379; 85610; 85730; 86850; 86900; 86901; 86920; 87040; 87086; 93005; 93010; 93970; 96361; 96365; 96375; 96376; 99284; C9113; G0378; J0696; J1885; J2405; J7030; J7040; P9016; Q9967

== ENCOUNTER 2019-08-26 20:36 | Emergency (ER) | payer OTHER ==
[2019-08-26 20:55] VITALS: BP 137/77
[2019-08-26 21:38] LABS: Bacteria,Urine 1+ /HPF (Negative); Bilirubin,Urine NEG (Negative); Blood,Urine MOD (Negative); Color,Urine Yellow (Yellow); Mucus,Urine FEW /HPF
[2019-08-26 21:45] LABS: HCG Qualitative,Urine Negative (Negative)
[2019-08-26] MEDS ORDERED: KETOROLAC 30 MG/1 ML INJ IM ONE (21:50)
[2019-08-26] MEDS ORDERED: ACETAMINOPHEN 500 MG TAB PO ONE (21:50)
[2019-08-26] MEDS ORDERED: ONDANSETRON 4 MG ODT TAB PO ONE (21:50)
[2019-08-26] MEDS ORDERED: LIDOCAINE-MPF (1%) 10 MG/1 ML VIAL 5 ML INFILTRATI ONE (21:50)
--- NOTE | 2019-08-26 22:23 | Emergency Department Report ---
ED Back Pain/Injury HPI - General Chief Complaint: Back Pain/Injury Stated Complaint: PAIN ON LEFT SIDE Source: patient Limitations: No Limitations - History of Present Illness Initial Comments: Patient is a 39-year-old -[place] female with no past medical history presents to the ED with complaint of acute onset persistent severe left-sided low back pain that radiates to the left flank and left hip for the last 2 days. Patient also complains of one episode of nausea and vomiting. Patient states that the pain is constant and worsened in the last 8 hours. Patient denies dizziness, syncope, urinary frequency and urgency, dysuria, fever, chills, cough, abdominal pain, nausea and vomiting, heavy lifting, traumatic injury, fall, hematuria, chest pain or shortness of breath, numbness and tingling or weakness of lower extremities bilaterally MD Complaint: back pain (lower), other (left flank pain) -: Sudden, days(s) (2) Similar Symptoms Previously: Yes Place: home Radiation: buttocks (left), left leg (left hip) Severity: severe Severity scale (0 -10): 8 Quality: sharp, aching Consistency: constant Improves With: none Worsens With: none Context: other (spontaneous) Associated Symptoms: denies other symptoms, nausea/vomiting. denies: weakness, chest pain, numbness, difficulty walking, cough, diaphoresis, fever/chills, constipation, headaches, abdominal pain, loss of appetite, malaise, rash, seizure, shortness of breath, other - Related Data Previous Rx's Medication Instructions Recorded Last Taken Type Iron/Folat1/C/B12/Biot/Docusat 1 each PO DAILY #14 capsule 10/28/17 Unknown Rx [Feriva FA Capsule] Ondansetron [Zofran Odt] 4 mg PO Q8HR PRN #15 tab.rapdis 02/15/19 Unknown Rx Pantoprazole [Protonix TAB] 40 mg PO DAILY #10 tablet 02/15/19 Unknown Rx Ibuprofen [Motrin] 800 mg PO Q8HR PRN #24 tablet 08/26/19 Unknown Rx cephALEXin [Keflex] 500 mg PO Q8HR #30 cap 08/26/19 Unknown Rx tiZANidine [Zanaflex 4mg TAB] 0 mg PO Q8H PRN #21 tablet 08/26/19 Unknown Rx traMADoL [Ultram] 50 mg PO Q6HR PRN #12 tablet 08/26/19 Unknown Rx Allergies Allergy/AdvReac Type Severity Reaction Status Date / Time No Known Allergies Allergy Verified 02/14/19 05:45 ED Review of Systems ROS: Stated complaint: PAIN ON LEFT SIDE Other details as noted in HPI Constitutional: denies: chills, fever Eyes: denies: eye pain, eye discharge, vision change ENT: denies: ear pain, throat pain Respiratory: denies: cough, shortness of breath, wheezing Cardiovascular: denies: chest pain, palpitations Endocrine: no symptoms reported Gastrointestinal: nausea, vomiting, other (left flank pain). denies: abdominal pain, diarrhea Genitourinary: denies: urgency, dysuria, discharge Musculoskeletal: back pain (left-sided low back pain), arthralgia (left hip pain). denies: joint swelling Skin: denies: rash, lesions Neurological: denies: headache, weakness, paresthesias Psychiatric: denies: anxiety, depression Hematological/Lymphatic: denies: easy bleeding, easy bruising ED Past Medical Hx - Past Medical History Previous Medical History?: Yes Hx Heart Attack/AMI: No Hx Congestive Heart Failure: No Hx Diabetes: No Hx Sickle Cell Disease: No Hx Arthritis: No Hx Headaches / Migraines: No Hx Asthma: No Hx COPD: No Hx Dementia: No Hx HIV: No Additional medical history: Kidney abscess - Surgical History Past Surgical History?: Yes Hx Coronary Stent: No Hx Open Heart Surgery: No Hx Internal Defibrillator: No Additional Surgical History: c section - Social History Smoking Status: Never Smoker Substance Use Type: None - Medications Home Medications: Home Medications Medication Instructions Recorded Confirmed Last Taken Type Iron/Folat1/C/B12/Biot/Docusat 1 each PO DAILY #14 capsule 10/28/17 Unknown Rx [Feriva FA Capsule] Ondansetron [Zofran Odt] 4 mg PO Q8HR PRN #15 tab.rapdis 02/15/19 Unknown Rx Pantoprazole [Protonix TAB] 40 mg PO DAILY #10 tablet 02/15/19 Unknown Rx Ibuprofen [Motrin] 800 mg PO Q8HR PRN #24 tablet 08/26/19 Unknown Rx cephALEXin [Keflex] 500 mg PO Q8HR #30 cap 08/26/19 Unknown Rx tiZANidine [Zanaflex 4mg TAB] 0 mg PO Q8H PRN #21 tablet 08/26/19 Unknown Rx traMADoL [Ultram] 50 mg PO Q6HR PRN #12 tablet 08/26/19 Unknown Rx ED Physical Exam - General Limitations: No Limitations General appearance: alert, in no apparent distress - Head Head exam: Present: atraumatic, normocephalic, normal inspection - Eye Eye exam: Present: normal appearance, PERRL Pupils: Present: normal accommodation - ENT ENT exam: Present: normal exam, normal orophraynx, mucous membranes moist, TM's normal bilaterally - Neck Neck exam: Present: normal inspection, full ROM - Respiratory Respiratory exam: Present: normal lung sounds bilaterally. Absent: respiratory distress, wheezes, rales, chest wall tenderness, accessory muscle use, prolonged expiratory - Cardiovascular Cardiovascular Exam: Present: regular rate, normal rhythm, normal heart sounds. Absent: systolic murmur, diastolic murmur, rubs, gallop - GI/Abdominal GI/Abdominal exam: Present: soft, normal bowel sounds. Absent: tenderness, guarding, rebound, hyperactive bowel sounds - Extremities Exam Extremities exam: Present: normal inspection, full ROM, normal capillary refill - Back Exam Back exam: Present: normal inspection, full ROM, tenderness (Palpable left-sided lumbosacral paraspinal musculoskeletal tenderness), muscle spasm, paraspinal tenderness - Neurological Exam Neurological exam: Present: alert, oriented X3, CN II-XII intact, normal gait, reflexes normal - Psychiatric Psychiatric exam: Present: normal affect, normal mood - Skin Skin exam: Present: warm, dry, intact, normal color. Absent: rash ED Course Vital Signs 08/26/19 20:54 Temperature 98.9 F Pulse Rate 86 Respiratory 16 Rate Blood Pressure 137/77 O2 Sat by Pulse 99 Oximetry ED Medical Decision Making - Medical Decision Making This is a 39-year-old -[place] female with no past medical history presents to the ED with complaint of acute onset persistent severe left-sided low back pain that radiates to the left flank and left hip for the last 2 days. Patient also complains of one episode of nausea and vomiting. Patient states that the pain is constant and worsened in the last 8 hours. In the ED, patient is alert and oriented x3 and is not in distress with normal vital signs. Patient was treated for pain in the ED and also received antiemetics. Urinalysis shows significant urinary tract infection. Patient was treated also in the ED with Rocephin 1 g intramuscular injection. On reevaluation, patient's pain is well controlled medications. Patient was discharged home on pain medications and antibiotics and was advised to follow-up with her primary care physician in 5 to 7 days for reevaluation or return to the ED immediately if symptoms get worse. - Differential Diagnosis UTI; Muscle spasm; low back pain; muscle strain; sciatica Critical care attestation.: If time is entered above; I have spent that time in minutes in the direct care of this critically ill patient, excluding procedure time. ED Disposition Clinical Impression: Spasm of muscle of lower back, Acute urinary tract infection, Acute left flank pain Disposition: TO HOME OR SELFCARE Is pt being admited?: No Does the pt Need Aspirin: No Condition: Stable Instructions: Flank Pain (ED), Urinary Tract Infection in Women (ED), Acute Low Back Pain (ED), Muscle Spasm (ED) Additional Instructions: Take medication with food, drink plenty of fluids and follow-up with your primary care physician in 5 to 7 days for reevaluation. Return to the ED immediately if symptoms get worse. Prescriptions: cephALEXin [Keflex] 500 mg PO Q8HR #30 cap Ibuprofen [Motrin] 800 mg PO Q8HR PRN #24 tablet PRN Reason: Pain , Severe (7-10) traMADoL [Ultram] 50 mg PO Q6HR PRN #12 tablet PRN Reason: Pain tiZANidine [Zanaflex 4mg TAB] 0 mg PO Q8H PRN #21 tablet PRN Reason: Muscle Spasm Referrals: [facility] [Provider Group] - 3-5 Days [facility] [Outside] - 3-5 Days Time of Disposition: 22:23 Print Language: CENTRAL AFRICAN
== END 2019-08-26 23:18 | disposition home or self-care (01) ==
LOC: ED 20:36
DX: N39.0 Urinary tract infection, site not specified (principal); M62.830 Muscle spasm of back; Z98.890 Other specified postprocedural states; Z79.899 Other long term (current) drug therapy
CPT/HCPCS: 81001; 81025; 87076; 87086; 87186; 96372; 99283; J0696; J1885; Q0162